=== PATIENT | male | born 1980 ===

== ENCOUNTER 2025-01-26 06:40 | Day surgery (SDC) | payer OTHER, SELFPAY ==
[2025-01-26 07:30] VITALS: BP 112/74; PULSE 78; RESP 18; TEMP 36.8; O2SAT 100
[2025-01-26] MEDS: LACTATED RINGERS 1,000 ML 150 ML IV CONT ×3 (07:41→09:20)
--- NOTE | 2025-01-26 07:53 | P.PNAN_ITS ---
Anes - Initial Pre Proc Eval Procedure: Operation Date: 01/26/25 08:30 Proposed Procedures p Screening Colonoscopy - Claus Mohan DO Date/Time: 01/26/25 07:53 Surgeon: Claus Mohan DO Pre Op Diagnosis: Neoplasm Screening, Positive Cologuard Patient Data Age: 44 Gender: M Height: 1.68 m Weight: 85.9 kg Last Vital Signs Temp 98.2 F 01/26/25 07:30 Pulse 78 01/26/25 07:30 Resp 18 01/26/25 07:30 BP 112/74 01/26/25 07:30 Pulse Ox 100 01/26/25 07:30 O2 Del Method Room Air 01/26/25 07:30 Allergies Allergy/AdvReac Type Severity Reaction Status Date / Time No Known Allergies Allergy Verified 01/20/25 09:28 Home Medications ?Medication ?Instructions ?Recorded ?Confirmed ?Type cholecalciferol (vitamin D3) PO DAILY 01/14/25 Histor y Patient hx anesthesia problems: none Family hx anesthesia problems: none Results Review: All pre-operative results and documents have been reviewed as part of the pre- operative evaluation. [facility] [place] [place] Family History Family History (System 01/20/25 @ 09:28 by Becca Hamm) Father Hypertension Family history of type 1 diabetes mellitus Social History Social History (System 01/20/25 @ 09:28 by Becca Hamm) Smoking status: Never smoker Alcohol intake: current Drinks per week: 15 Substance use: never Substance use type: does not use Living arrangements: with family Spiritual care concerns: No Anes - Eval Final PreProcedure Day of Procedure 01/26/25 07:53 Heart: regular rate and rhythm Lungs: clear to auscultation Airway: Mallampati scale class II Neurological: alert and oriented Last oral intake: >/= 8 hours ASA classification: II Anesthetic plan: proceed Anesthesia type and monitoring: general Results Review: All pre-operative results and documents have been reviewed as part of the pre- operative evaluation. Informed Consent: The patient's anesthetic plan and its attendant risks and benefits were discussed with the patient/family/POA. Questions were solicited and answers provided to the satisfaction of the patient/family/POA.
--- NOTE | 2025-01-26 08:11 | P.HP_ITS ---
H&P: HPI History of Present Illness Date/Time: 01/26/25 08:11 Chief Complaint: + Cologuard Narrative: 44 yo man presents for colonoscopy. He had + cologuard test. Never had colonoscopy before. Denies hematochezia or melena. Denies change in bowels. No fam hx colon cancer. Review of Systems Review of Systems: All systems reviewed & are unremarkable except as noted in HPI and below Constitutional: Constitutional: Denies chills, Denies fever(s), Denies headache(s) and Denies weight loss Eyes: Eyes: Denies change in vision ENT: Denies dizziness, Denies headache(s), Denies neck mass and Denies throat swelling Cardiovascular: Cardiovascular: Denies chest pain, Denies lightheadedness and Denies dyspnea Respiratory: Respiratory: Denies cough, Denies dyspnea and Denies wheezing Gastrointestinal: Gastrointestinal: Denies abdominal pain, Denies change in bowel habits, Denies nausea and Denies vomiting Genitourinary: Genitourinary: Denies hematuria and Denies dysuria Musculoskeletal: Musculoskeletal: Reports as per HPI Integumentary/Breasts: Skin/Breast: Reports as per HPI Neurologic: Denies dizziness and Denies headache(s) Allergic/Immunologic: Allergic/Immunologic: Denies throat swelling and Denies wheezing PMFSH Family History Family History (System 01/20/25 @ 09:28 by Becca Hamm) Father Hypertension Family history of type 1 diabetes mellitus Social History Social History (System 01/20/25 @ 09:28 by Becca Hamm) Smoking status: Never smoker Alcohol intake: current Drinks per week: 15 Substance use: never Substance use type: does not use Living arrangements: with family Spiritual care concerns: No Meds Home Medications and Allergies Home Medications ?Medication ?Instructions ?Recorded ?Confirmed ?Type cholecalciferol (vitamin D3) PO DAILY 01/14/25 Histor y Allergies Allergy/AdvReac Type Severity Reaction Status Date / Time No Known Allergies Allergy Verified 01/20/25 09:28 Vital Signs Vital Signs - 24 hr 01/26/25 07:30 Temperature 98.2 F Pulse Rate 78 Respiratory Rate 18 Blood Pressure 112/74 Pulse Oximetry 100 Oxygen Delivery Room Air Exam Const: General: no acute distress and alert Orientation/consciousness: patient oriented x3 HENMT: Head: normocephalic and atraumatic Ears: hearing grossly normal bilaterally Face/Nose/Sinus: Normal nares present Mouth: Yes Normal oral and palatal mucosa present Eyes: Periorbital: periorbital findings normal Sclera: sclerae normal EOM: EOMs intact bilaterally Neck: Neck: normal visual inspection, no lymphadenopathy and trachea midline Chest: Chest palpation & inspection: normal inspection of the chest Resp: Effort & Inspection: normal respiratory effort Auscultation: clear to auscultation bilaterally Cardio: Jugular venous distension: no JVD Rate: regular rate Rhythm: regular rhythm Heart sounds: S1 normal heart sound present and S2 normal heart sound present Peripheral pulses: Peripheral pulses 2+ throughout GI: Inspection: normal to inspection GI Palp: Yes Soft to palpation, No Tenderness to palpation present (GI), No Guarding due to palpation present (GI) and No Rebound tenderness present Percussion: Yes normal to percussion Auscultation: normal bowel sounds : General: Yes no CVA tenderness Back/Spine/Pelvis: Back: no CVA tenderness Neuro: General: patient oriented x3, no focal motor deficits and CN's II-XI intact bilaterally Cognition (Neuro): normal cognition Speech: normal speech Motor exam (neuro): 5/5 motor strength present throughout Extrem: General: capillary refill normal and no clubbing, cyanosis or edema Assessment and Plan Assessment and plan (1) Positive colorectal cancer screening using Cologuard test: Code(s): R19.5 - Other fecal abnormalities Status: Acute Assessment and Plan: I have recommended colonoscopy. I have discussed the procedure, risks, benefits, and alternatives. Questions were answered. Patient is agreeable to proceed.
--- NOTE | 2025-01-26 08:30 | WPDANESPN ---
Anes - Prog Note Post-Op Date/Time: 01/26/25 08:30 Vital Signs: Last Vital Signs Temp 98.2 F 01/26/25 07:30 Pulse 78 01/26/25 07:30 Resp 18 01/26/25 07:30 BP 112/74 01/26/25 07:30 Pulse Ox 100 01/26/25 07:30 O2 Del Method Room Air 01/26/25 07:30 Pain Score (VAS): no Patient Feedback: Patient satisfied with anesthetic care.
[2025-01-26 08:56] VITALS: BP 105/83; PULSE 70; RESP 14; O2SAT 95
[2025-01-26 09:06] VITALS: BP 119/86; PULSE 66; RESP 14; O2SAT 96
[2025-01-26 09:16] VITALS: BP 114/83; PULSE 63; RESP 14; O2SAT 99
== END 2025-01-26 09:29 | disposition home or self-care (01) ==
PROVIDERS: Visit Provider Surgery
PROC: 0DJD8ZZ Inspection of Lower Intestinal Tract, Via Natural or Artificial Opening Endoscopic (ICD-10-PCS; CPT 45378; principal; 2025-01-26 08:30)
DX: Z12.11 Encounter for screening for malignant neoplasm of colon (principal); R19.5 Other fecal abnormalities; K63.5 Polyp of colon; D12.5 Benign neoplasm of sigmoid colon
CPT/HCPCS: 45380; 45385

== ENCOUNTER 2025-01-26 07:54 | Outpatient (NON) | payer OTHER, SELFPAY ==
--- NOTE | 2025-01-26 | S_PTH ---
PATIENT: Lv Shea LOC: [facility] U#:[id number] AGE/SX: 44/M ROOM: RE01/26/[address]: Claus Mohan DO : 1980 BED: DIS: 01/26/2025 SPEC #: [id number] RECD: 01/27/25 08:14 STATUS: SYBIL RICHARDS #: [id number] SANTA: 01/26/25 00:[address]: Claus Mohan DEPT: [facility] Surgical RECD BY: Tyrone De Jesus ENTERED: 01/27/25 08:15 SP TYPE: Surgical OTHR DR: UNKNOWN,DOCTOR Tissues: A - Colon Polypectomy B - Colon Polypectomy Procedures: Hematoxylin and Eosin Stain Gross and Microscopic Level 4
--- OUTSIDE RECORDS SUMMARY | 2025-01-27 07:59 | XMS_ITS | Clinical Summary ---
Author Organization [facility] [employer] Address [address] [place] [address] Care Team Providers Care Soda Maker Name Role Phone Unavailable Primary Care Provider Unavailabl e Source Comments [facility],non-owned Affiliates and Associated Physician Practices is amultiple site organization consisting of ambulatory clinics and hospital sitesin [place], [place], [place] and [place]. This disclosure is being madepursuant to the Care Everywhere program and may not contain all information available regarding this patient. Last updated 17.[facility] [employer] Social History Tobacco Use Types Packs/Day Years Used Date Smoking Tobacco: Never Assessed Sex and Gender Information Value Date Recorded Sex Assigned at Not on file Legal Sex Male 7:48 AM CDT Gender Identity Not on file Sexual Orientation Not on file Plan of Treatment Health Maintenance Due Date Last Done Comments COLOGUARD (AGES 45-75) - COL ON CA SCREENING 1978 COLON MONITORING 1978 COLONOSCOPY - COLON CA SCREENING 1978 CT COLONOGRAPHY - COLON CA SCREENING 1980 Colorectal Cancer Screening 1980 FIT - COLON CA SCREENING 1978 FLEX SIG - COLON CA SCREENING 1978 LIPID TESTING 1978 HIV SCREENING 1993 HEPATITIS C SCREENING 01/30/1996 DTAP/TDAP/TD VACCINES (1 - Tdap) 1997 HEPATITIS B VACCINE (1 of 3 - 19+ 3-dose series) 1997 DEPRESSION SCREENING 02/06/2024 COVID-19 VACCINE (1 - 2024-2 6 season) 2024 INFLUENZA VACCINE (#1) 2024 ZOSTER VACCINE (1 of 2) 02/04/2028 HIB VACCINE Aged Out No longer eligi ble based on patient's age to complete this topic HPV VACCINE Aged Out No longer eligi ble based on patient's age to complete this topic MENINGOCOCCAL (Group B) VACC INE SHARED DECISION-MAKING Aged Out No longer eligibl e based on patient's age to complete this topic MENINGOCOCCAL GROUPS A/C/Y/W VACCINE Aged Out No longer eligible b ased on patient's age to complete this topic PNEUMOCOCCAL VACCINE Aged Out No long er eligible based on patient's age to complete this topic
--- OUTSIDE RECORDS SUMMARY | 2025-01-27 07:59 | XMS_ITS | Clinical Summary ---
Author Organization [facility] Address [address] [place] [id number] Care Team Providers Care Master Rigger Name Role Phone Bret Sultana DO Primary Care Provider + Allergies No known active allergies Medications No known medications Active Problems No known active problems Family History Medical History Relation Comments Cancer Daughter Diabetes Father Cancer Mother Relation Status Comments Daughter Father Mother Social History Tobacco Use Types Packs/Day Years Used Date Smoking Tobacco: Light Smoker Cigars Smokeless Tobacco: Never Comments:Occ. Alcohol Use Standard Drinks/Week Comments Yes 0 (1 standard drink = 0.6 oz pur e alcohol) PHQ-2 Answer Date Recorded PHQ-2 Score 0 05/06/2018 Sex and Gender Information Value Date Recorded Sex Assigned at Not on file Legal Sex Male 9:53 AM VP [facility] Gender Identity Not on file Sexual Orientation Not on file Last Filed Vital Signs Vital Sign Reading Time Taken Comments Blood Pressure 130/78 02/18/2018 11:19 AM VP [facility]ASC[facility] Pulse 80 02/18/2018 11:19 AM VP CARDI[facility]ASCULAR Temperature 36.7 C (98.1 F) 02/18/2018 11:19 AM VP CARDI[facility]ASC[facility] Respiratory Rate 16 02/18/2018 11:19 AM VP CARDIOVASCULAR Oxygen Saturation 96% 02/18/2018 11:19 AM VP CARDI[facility]ASCULAR Inhaled Oxygen Concentration - - Weight 93.2 kg (205 lb 6 oz) 02/18/2018 11:19 AM [facility] Height 167.6 cm (5' 6) 02/18/2018 11:19 AM VP CARDI[facility]ASCULAR Body Mass Index 33.15 02/18/2018 11:19 AM VP CARDIOVASCULAR Plan of Treatment Health Maintenance Due Date Last Done Comments Colorectal Cancer Screening Colonoscopy (10 Years) 1978 Annual Physical 1981 Hepatitis C 02/04/1996 DTaP, Tdap and Td Vaccines ( 1 - Tdap) 1997 Hepatitis B Vaccines (1 of 3 - 19+ 3-dose series) 1997 Pneumococcal Vaccine: Pediat rics (0 to 5 Years) and At-Risk Patients (6 to 49 Years) (1 of 2 - PCV) 1997 COVID-19 Vaccine ( - 2024-2 6 season) 2024 Influenza Adult (#1) 2024 Hepatitis A Vaccines Aged Out No long er eligible based on patient's age to complete this topic Meningococcal B Vaccine Aged Out No l onger eligible based on patient's age to complete this topic Meningococcal Vaccine Aged Out No [place] eligible based on patient's age to complete this topic RSV Immunizations Under 20 Months Aged Out No longer eligible based on patient's age to complete this topic Insurance C[employer] Care Teams Master Rigger Relationship Specialty Start Date End Date Bret Sultana DO [address] [place] [id number] PCP - General FAMILY PRACTICE 02/18/18
== END 2025-01-26 07:55 | disposition home or self-care (01) ==
LOC: ANHLAB 01-27 07:55
PROVIDERS: Visit Provider Surgery
DX: R19.5 Other fecal abnormalities (principal)
CPT/HCPCS: 88305